=== PATIENT | female | born 1995 | race Caucasian/White ===

== ENCOUNTER 2023-06-16 10:14 | Outpatient (CLI) | payer BC, SELFPAY | END 2023-06-16 10:15 | disposition home or self-care (01) | PROVIDERS: Visit Provider Obstetrics & Gynecology | DX: F64.9 Gender identity disorder, unspecified (principal) | CPT/HCPCS: 80076; 82670; 84403 ==

== ENCOUNTER 2023-09-14 09:18 | Outpatient (CLI) | payer BC, SELFPAY | END 2023-09-14 09:19 | disposition home or self-care (01) | LOC: NFLDREF 09-21 09:55 | PROVIDERS: Visit Provider Obstetrics & Gynecology | DX: F64.9 Gender identity disorder, unspecified (principal) | CPT/HCPCS: 84403 ==

== ENCOUNTER 2023-12-24 09:36 | Outpatient (CLI) | payer BC, SELFPAY | END 2023-12-24 09:37 | disposition home or self-care (01) | LOC: NFLDREF 01-13 09:43 | PROVIDERS: Visit Provider Obstetrics & Gynecology | DX: Z79.899 Other long term (current) drug therapy (principal) | CPT/HCPCS: 84403 ==

== ENCOUNTER 2023-12-27 10:01 | Outpatient (CLI) | payer BC, SELFPAY ==
[2023-12-27 18:49] LABS: Chlamydia DNA Amplified* NOT DETECTED (No Detected); GC DNA Amplified* NOT DETECTED (No Detected)
== END 2023-12-27 10:02 | disposition home or self-care (01) ==
PROVIDERS: Visit Provider Obstetrics & Gynecology
DX: Z11.3 Encounter for screening for infections with a predominantly sexual mode of transmission (principal)
CPT/HCPCS: 86592; 86703; 86706; 86803; 87340; 87491; 87591

== ENCOUNTER 2024-01-03 13:44 | Outpatient (CLI) | payer BC, SELFPAY ==
--- NOTE | 2024-01-03 14:00 | US_ITS ---
Patient: KARI SNIDER Facility:?[facility] Patient ID:?[id number] Site Patient ID:?[id number]. Site :?[id number] Study:?US-Pelvis PELVIS TA & TV-01/03/2024 2:41:51 PM Ordering Physician:?ANDREW WARE M.D. Final Report: INDICATION: Pelvic and perineal pain. IUD. TECHNIQUE: Transabdominal and transvaginal pelvic ultrasound. FINDINGS: Uterus is anteverted and measures 6.8 x 2.9 x 5.0 cm. Endometrial stripe thickness is 5 mm. There is an IUD in the uterus. This is located in the lower uterine segment. Both ovaries appear normal and have normal color and spectral Doppler flow. No adnexal mass or free fluid. IMPRESSION: Malpositioned IUD located in the lower uterine segment. Dictated by Baron Londono MD @ 01/04/2024 11:18:59 AM Signed by:?Baron Londono MD @01/04/2024 11:18:59 AM (Electronic Signature)
== END 2024-01-03 13:45 | disposition home or self-care (01) ==
LOC: US 13:45
PROVIDERS: Visit Provider Obstetrics & Gynecology
DX: R10.2 Pelvic and perineal pain (principal); Z30.431 Encounter for routine checking of intrauterine contraceptive device
CPT/HCPCS: 76830; 76856; 93976

== ENCOUNTER 2025-03-29 10:04 | Outpatient (CLI) | payer BC, SELFPAY ==
[2025-03-30 20:41] LABS: HPV Source Cervical
== END 2025-03-29 10:05 | disposition home or self-care (01) ==
PROVIDERS: Visit Provider Obstetrics & Gynecology
DX: E78.00 Pure hypercholesterolemia, unspecified (principal); F64.9 Gender identity disorder, unspecified; Z12.4 Encounter for screening for malignant neoplasm of cervix; Z13.1 Encounter for screening for diabetes mellitus; Z79.899 Other long term (current) drug therapy
CPT/HCPCS: 80061; 84403; 87624; 87625; 88141; 88142

== ENCOUNTER 2025-04-11 08:41 | Outpatient (CLI) | payer BC, SELFPAY ==
[2025-04-11 11:16] LABS: Bacterial Vaginosis* Negative (Negative); Candida glab/krus NOT DETECTED (No Detected)
== END 2025-04-11 08:42 | disposition home or self-care (01) ==
PROVIDERS: Visit Provider Obstetrics & Gynecology
DX: N89.8 Other specified noninflammatory disorders of vagina (principal)
CPT/HCPCS: 81513; 87109; 87481; 87661